=== PATIENT | male | born 1960 | race Caucasian/White ===

== ENCOUNTER 2018-09-11 07:25 | Day surgery (SDC) | payer OTHER ==
[~2018-09-11] VITALS: Ht 182.9 cm; Wt 122.5 kg
[~2018-09-11 07:25] MED LIST: ALLO300T2 PO; ALPH100C PO; ASPI-264 PO; ASPI325T5 PO; ATOR1TAB19 PO; BENI40TA3 PO; BENI40TA5 PO; FENO48TA2 PO; INSULANT SC; INSURSDRX SC; LEVO125T4 PO; LEVO250T PO; LIDOCAINE 2% INJ 100 MG/5 ML SDV (FOR ANES.) As Ordered ONE; LIPI10TA PO; NOVOLOG SC; OLME40TA PO; OMEP20CA3 PO; OMEP40CA2 PO; PROPOFOL 200 MG/20 ML VIAL As Ordered ONE; REGULAR INSULIN SC; SYNT88TA2 PO; TRES100I SC; TRIC1TAB PO; TYLE325T5 PO; VITA50005 PO; ZYLO300T6 PO
[2018-09-11] MEDS ORDERED: NS 1,000 ML IV ONE (07:30)
[2018-09-11] MEDS ORDERED: fentaNYL 100 MCG/2 ML INJECTION (J3010) As Ordered ONE (07:54)
--- NOTE | 2018-09-11 09:12 | ROOR ---
Patient Name: Olayinka Coe Procedure Date: 09/11/2018 8:54 AM Date of : 1960 Age: 58 Room: [facility] Gender: Male Note Status: Finalized Procedure: Upper Endoscopy + Biopsies Indications: Heartburn, Follow-up of Dougherty's esophagus Providers: Zelalem Martinez MD Referring MD: Ángel Vieyra MD Requesting Provider: Medicines: Monitored Anesthesia Care Complications: No immediate complications. Procedure: Pre-Anesthesia Assessment: - The heart rate, respiratory rate, oxygen saturations, blood pressure, adequacy of pulmonary ventilation, and response to care were monitored throughout the procedure. The Endoscope was introduced through the mouth, and advanced to the second part of duodenum. The upper GI endoscopy was accomplished without difficulty. The patient tolerated the procedure well. Findings: The Z-line was variable and was found 40 cm from the incisors. Multiple biopsies were obtained with cold forceps for evaluation to rule out Dougherty's Esophagus randomly at the gastroesophageal junction. A small hiatal hernia was present. No other significant abnormalities were identified in a careful examination of the stomach. The exam of the duodenum was otherwise normal. Impression: - Z-line variable, 40 cm from the incisors. - Small hiatal hernia. - Multiple biopsies were obtained at the gastroesophageal junction. - The examination was otherwise normal. Recommendation: - Patient has a contact number available for emergencies. The signs and symptoms of potential delayed complications were discussed with the patient. Return to normal activities tomorrow. Written discharge instructions were provided to the patient. - High fiber diet. - Discharge patient to home. - Follow an antireflux regimen. - Continue present medications. - Await pathology results. - Telephone GI clinic for pathology results in 1 week. - Return to referring physician. - The findings and recommendations were discussed with the patient's family. Zelalem Martinez MD Zelalem Martinez MD 09/11/2018 9:12:16 AM Electronically signed by Zelalem Martinez MD Number of Addenda: 0 Note Initiated On: 09/11/2018 8:54 AM Estimated Blood Loss: Estimated blood loss: none.
[2018-09-11] MEDS ORDERED: PROPOFOL 200 MG/20 ML VIAL As Ordered ONE (09:30)
--- NOTE | 2018-09-11 09:36 | ROOR ---
Patient Name: Olayinka Coe Procedure Date: 09/11/2018 8:55 AM Date of : 1960 Age: 58 Room: [facility] Gender: Male Note Status: Finalized Procedure: Total Colonoscopy to Cecum + Cold Snare Polypectomy + Hemoclips Indications: Screening for colorectal malignant neoplasm Providers: Zelalem Martinez MD Referring MD: Ángel Vieyra MD Requesting Provider: Medicines: Monitored Anesthesia Care Complications: No immediate complications. Procedure: Pre-Anesthesia Assessment: - The heart rate, respiratory rate, oxygen saturations, blood pressure, adequacy of pulmonary ventilation, and response to care were monitored throughout the procedure. The Colonoscope was introduced through the anus and advanced to the cecum, identified by appendiceal orifice and ileocecal valve. The colonoscopy was performed without difficulty. The patient tolerated the procedure well. The quality of the bowel preparation was excellent. Findings: The perianal and digital rectal examinations were normal. Non-bleeding internal hemorrhoids were found during retroflexion. The hemorrhoids were small and Grade I (internal hemorrhoids that do not prolapse). Multiple small-mouthed diverticula were found in the recto-sigmoid colon, sigmoid colon and descending colon. A small polyp was found at 35 cm proximal to the anus. The polyp was sessile. The polyp was removed with a cold snare. Resection and retrieval were complete. To prevent bleeding after the polypectomy, one hemostatic clip was successfully placed (MR conditional). There was no bleeding at the end of the procedure. A small polyp was found at 40 cm proximal to the anus. The polyp was sessile. The polyp was removed with a cold snare. Resection and retrieval were complete. The exam was otherwise without abnormality on direct and retroflexion views. Impression: - Non-bleeding internal hemorrhoids. - Diverticulosis in the recto-sigmoid colon, in the sigmoid colon and in the descending colon. - One small polyp at 35 cm proximal to the anus, removed with a cold snare. Resected and retrieved. Clip (MR conditional) was placed. - One small polyp at 40 cm proximal to the anus, removed with a cold snare. Resected and retrieved. - The examination was otherwise normal on direct and retroflexion views. - The exam was otherwise normal to the cecum. Recommendation: - Patient has a contact number available for emergencies. The signs and symptoms of potential delayed complications were discussed with the patient. Return to normal activities tomorrow. Written discharge instructions were provided to the patient. - High fiber diet. - Discharge patient to home. - Continue present medications. - Await pathology results. - Telephone GI clinic for pathology results in 1 week. - Repeat colonoscopy for surveillance based on pathology results. - Return to referring physician. - The findings and recommendations were discussed with the patient's family. Zelalem Martinez MD Zelalem Martinez MD 09/11/2018 9:36:27 AM Electronically signed by Zelalem Martinez MD Number of Addenda: 0 Note Initiated On: 09/11/2018 8:55 AM Estimated Blood Loss: Estimated blood loss: none.
[2018-09-11 09:55] VITALS: BP 16/85
== END 2018-09-11 10:07 | disposition home or self-care (01) ==
LOC: M OPP 07:25
PROVIDERS: ATTEND Internal Medicine Gastroenterology
DX: Z12.11 Encounter for screening for malignant neoplasm of colon (principal); K64.0 First degree hemorrhoids; D12.6 Benign neoplasm of colon, unspecified; K57.30 Diverticulosis of large intestine without perforation or abscess without bleeding; K22.8 Other specified diseases of esophagus; K44.9 Diaphragmatic hernia without obstruction or gangrene; K22.70 Barrett's esophagus without dysplasia; R12 Heartburn; F17.210 Nicotine dependence, cigarettes, uncomplicated; Z88.5 Allergy status to narcotic agent; Z79.4 Long term (current) use of insulin; Z79.82 Long term (current) use of aspirin; Z79.899 Other long term (current) drug therapy
CPT/HCPCS: 43239; 45385; 88305; J3010

== ENCOUNTER → 2020-07-23 | Outpatient (REF) | payer OTHER ==
[~2020-07-23] MED LIST changes: -FENO48TA2 PO; +FENO48TA7 PO; -LIDOCAINE 2% INJ 100 MG/5 ML SDV (FOR ANES.) As Ordered ONE; +OMEP1CAP73 PO; -PROPOFOL 200 MG/20 ML VIAL As Ordered ONE
== END ==
LOC: M LAB REF 12:29
PROVIDERS: ATTEND Nurse Practitioner Adult Health
DX: J02.9 Acute pharyngitis, unspecified (principal)

== ENCOUNTER → 2021-02-17 | Outpatient (CLI) | payer OTHER ==
[~2021-02-17] MED LIST changes: -FENO48TA7 PO; +FENO48TA8 PO
--- NOTE | 2021-02-17 12:09 | REP ---
INDICATION: CANCER SCREENING. COMPARISON: 10/11/2013 the only prior a standard noncontrast enhanced CT of the chest TECHNIQUE: Axial noncontrast images from the thoracic inlet to the upper abdomen using low-dose lung screening technique (LDCT). As per the protocol only lung window images were sent to the read station for interpretation. FINDINGS: Once again, there are numerous calcified granulomas seen scattered throughout the lung loving. No new abnormal nodules, masses, or opacities have developed. Grossly, the mediastinum and pulmonary joe are unchanged. Grossly, the imaged upper abdomen and imaged osseous structures are unchanged. IMPRESSION: A stable appearing lung rads category [address] low-dose screening CT examination of the lungs. Follow-up as per the revised Fleischner society criteria. <Electronically signed by Devon Mar > 02/17/21 [id number]
== END ==
LOC: M RAD 09:22
PROVIDERS: ATTEND Family Medicine
DX: Z87.891 Personal history of nicotine dependence (principal)

== ENCOUNTER → 2021-09-18 | Outpatient (REF) | payer OTHER | LOC: M SFHCDERM 14:11 | PROVIDERS: ATTEND Nurse Practitioner Family | DX: C44.602 Unspecified malignant neoplasm of skin of right upper limb, including shoulder (principal) ==

== ENCOUNTER → 2021-10-20 | Outpatient (REF) | payer OTHER | LOC: M SFHCDERM 17:09 | PROVIDERS: ATTEND Nurse Practitioner Family | DX: D48.9 Neoplasm of uncertain behavior, unspecified (principal) ==

== ENCOUNTER → 2021-12-30 | Outpatient (CLI) | payer OTHER ==
[~2021-12-30] MED LIST changes: +ALLO10TA PO; +HUMA100I5 SC; +OMEP10CASR PO; +OMEP40CA4 PO; +VITA100093 PO
== END ==
LOC: M LABSMTC 09:35
PROVIDERS: ATTEND Anesthesiology
DX: Z01.818 Encounter for other preprocedural examination (principal); Z11.52 Encounter for screening for COVID-19

== ENCOUNTER 2022-01-04 10:59 | Day surgery (SDC) | payer OTHER ==
[~2022-01-04] VITALS: Ht 182.9 cm; Wt 124.2 kg
[~2022-01-04 10:59] MED LIST changes: +NS 1,000 ML IV ONE
[2022-01-04] MEDS ORDERED: LIDOCAINE 2% 100MG/5ML SDV (FOR ANES.) As Ordered ONE (11:16)
[2022-01-04] MEDS ORDERED: propofoL 200 MG/20 ML VIAL As Ordered ONE (11:16)
[2022-01-04] MEDS ORDERED: fentaNYL 100 MCG/2 ML INJECTION As Ordered ONE (12:44)
[2022-01-04 13:43] VITALS: BP 159/74
== END 2022-01-04 13:45 | disposition home or self-care (01) ==
LOC: M OPP 10:59
PROVIDERS: ATTEND Internal Medicine Gastroenterology
DX: Z12.11 Encounter for screening for malignant neoplasm of colon (principal); Z86.010 Personal history of colon polyps; K64.0 First degree hemorrhoids; K22.70 Barrett's esophagus without dysplasia; K22.89 Other specified disease of esophagus; Z79.02 Long term (current) use of antithrombotics/antiplatelets; Z79.4 Long term (current) use of insulin; Z79.899 Other long term (current) drug therapy; Z88.5 Allergy status to narcotic agent; F17.200 Nicotine dependence, unspecified, uncomplicated; I25.2 Old myocardial infarction; I12.9 Hypertensive chronic kidney disease with stage 1 through stage 4 chronic kidney disease, or unspecified chronic kidney disease; E11.9 Type 2 diabetes mellitus without complications; E03.9 Hypothyroidism, unspecified; N18.4 Chronic kidney disease, stage 4 (severe); Z85.828 Personal history of other malignant neoplasm of skin
CPT/HCPCS: 43239; 45378; 88305; J3010

== ENCOUNTER → 2022-01-26 | Outpatient (REF) | payer OTHER ==
[~2022-01-26] MED LIST changes: -NS 1,000 ML IV ONE
== END ==
LOC: M SFHCDERM 17:04
PROVIDERS: ATTEND Dermatology
DX: Z48.02 Encounter for removal of sutures (principal)

== ENCOUNTER → 2022-09-15 | Outpatient (REF) | payer OTHER ==
[2022-09-15 17:30] LABS: APPEARANCE, URINE CLOUDY (CLEAR); BACTERIA, URINE AUTO 1+ (NEGATIVE); BILIRUBIN, URINE AUTO NEGATIVE (NEGATIVE); BLOOD, URINE BLOOD 2+ (NEGATIVE); COLOR, URINE AMBER (YELLOW); GLUCOSE, URINE (UA) AUTO NEGATIVE (NEGATIVE); KETONE, URINE AUTO TRACE mg/dL (NEGATIVE); LEUKOCYTE ESTERASE, URINE AUTO 3+ (NEGATIVE); MUCUS, URINE SMALL (NEGATIVE); NITRITE, URINE AUTO NEGATIVE (NEGATIVE); PROTEIN, URINE AUTO 3+ mg/dL (NEGATIVE); RBC, URINE AUTO 16 /HPF (0-3); SPECIFIC GRAVITY URINE AUTO 1.019 (1.002-1.035); SQUAMOUS EPITHELIAL CELL UR AU 2 /HPF (0-6); UROBILINOGEN, URINE AUTO 0.2 mg/dL (0.0-2.0); WBC, URINE AUTO TNTC /HPF (0-3)
== END ==
LOC: M LAB REF 16:09
PROVIDERS: ATTEND Physician Assistant
DX: R52 Pain, unspecified (principal)

== ENCOUNTER → 2022-11-18 | Outpatient (CLI) | payer OTHER | LOC: M RAD 10:34 | PROVIDERS: ATTEND Family Medicine | DX: Z87.891 Personal history of nicotine dependence (principal) ==

== ENCOUNTER → 2022-11-22 | Outpatient (CLI) | payer OTHER | LOC: M PLAIMG 11:36 | PROVIDERS: ATTEND Physician Assistant Surgical | DX: M19.071 Primary osteoarthritis, right ankle and foot (principal); M76.71 Peroneal tendinitis, right leg; R93.6 Abnormal findings on diagnostic imaging of limbs ==

== ENCOUNTER → 2022-11-22 | Outpatient (REF) | payer OTHER | LOC: M LAB REF 16:32 | PROVIDERS: ATTEND Family Medicine | DX: M19.071 Primary osteoarthritis, right ankle and foot (principal) ==

== ENCOUNTER → 2023-04-04 | Outpatient (CLI) | payer MEDICARE, OTHER | LOC: M RAD 15:30 | PROVIDERS: ATTEND Physician Assistant Medical | DX: N50.82 Scrotal pain (principal) ==

== ENCOUNTER → 2023-05-02 | Outpatient (REF) | payer MEDICARE, OTHER | LOC: M LAB REF 12:02 | PROVIDERS: ATTEND Family Medicine | DX: E03.9 Hypothyroidism, unspecified (principal) ==

== ENCOUNTER → 2023-05-12 | Outpatient (CLI) | payer MEDICARE, OTHER | LOC: M WUC 12:22 | PROVIDERS: ATTEND Family Medicine | DX: M16.10 Unilateral primary osteoarthritis, unspecified hip (principal) ==

== ENCOUNTER → 2024-04-05 | Outpatient (CLI) | payer MEDICARE, OTHER | LOC: M RAD 15:29 | PROVIDERS: ATTEND Family Medicine | DX: F17.211 Nicotine dependence, cigarettes, in remission (principal); R91.8 Other nonspecific abnormal finding of lung field; J84.10 Pulmonary fibrosis, unspecified ==

== ENCOUNTER → 2024-05-10 | Outpatient (REF) | payer MEDICARE, OTHER | LOC: M LAB REF 13:18 | PROVIDERS: ATTEND Family Medicine | DX: R97.8 Other abnormal tumor markers (principal) ==

== ENCOUNTER → 2024-09-27 | Outpatient (REF) | payer MEDICARE, OTHER | LOC: M SFHCDERM 09-26 08:38 | PROVIDERS: ATTEND Nurse Practitioner Family | DX: L57.0 Actinic keratosis (principal) ==

== ENCOUNTER 2024-12-26 09:27 | Day surgery (SDC) | payer MEDICARE, OTHER ==
[~2024-12-26] VITALS: Ht 182.9 cm; Wt 130.6 kg
[~2024-12-26 09:27] MED LIST changes: +INSU100V6 SQ; +LEVO150T7 PO
[2024-12-26] MEDS ORDERED: LIDOCAINE 2% 100 MG/5 ML SDV (FOR ANES.) As Ordered ONE (10:43)
[2024-12-26 10:56] VITALS: TEMP 97.8
[2024-12-26 11:21] VITALS: BP 148/65; O2SAT 98
== END 2024-12-26 11:32 | disposition home or self-care (01) ==
LOC: M OPP 09:27
PROVIDERS: ATTEND Internal Medicine Gastroenterology
DX: K44.9 Diaphragmatic hernia without obstruction or gangrene (principal); K22.89 Other specified disease of esophagus; K22.70 Barrett's esophagus without dysplasia; R12 Heartburn; G47.30 Sleep apnea, unspecified; Z86.73 Personal history of transient ischemic attack (TIA), and cerebral infarction without residual deficits; Z88.5 Allergy status to narcotic agent; Z79.82 Long term (current) use of aspirin; Z79.4 Long term (current) use of insulin; Z79.899 Other long term (current) drug therapy; F17.290 Nicotine dependence, other tobacco product, uncomplicated